=== PATIENT | male | born 1960 | race Hispanic/Latino ===

== ENCOUNTER 2022-09-30 15:09 | Emergency (ER) | payer MEDICARE, OTHER ==
[~2022-09-30] VITALS: Ht 165.1 cm; Wt 90.3 kg
[~2022-09-30 15:09] MED LIST: DULO30CA52 PO; FERR210T PO; FLUO15CR2 TP; GABA300S3 PO; Midodrine Hcl PO; OXYC10TA48 PO
[2022-09-30] MEDS ORDERED: HYDRALAZINE 20MG/ML VIAL IV ONE (15:30)
[2022-09-30 16:07] LABS: BASOPHILS % (AUTO) 1.3 % (0.0-5.0); EOSINOPHILS % (AUTO) 11.1 % (0.0-8.0); HEMATOCRIT 29.9 % (42-54); LYMPHOCYTES % (AUTO) 22.4 % (21.0-51.0); MEAN CORPUSCULAR HEMOGLOBIN 31.3 pg (27.0-33.0); MEAN CORPUSCULAR HGB CONC 32.4 g/dL (32.0-36.0); MEAN CORPUSCULAR VOLUME 96.5 fL (79-99); MONOCYTES % (AUTO) 9.8 % (3.0-13.0); NEUTROPHILS % (AUTO) 55.2 % (40.0-77.0); PLATELET COUNT (AUTO) 221 K/uL (130-400); WHITE BLOOD COUNT (AUTO) 5.4 K/uL (4.8-10.8)
[2022-09-30 16:51] LABS: POTASSIUM 4.2 mmol/L (3.5-5.1)
[2022-09-30 16:56] LABS: ALBUMIN 3.3 g/dL (3.5-5.0); TOTAL PROTEIN, SERUM 7.1 g/dL (6.0-8.3)
[2022-09-30] MEDS ORDERED: LABETALOL 20MG VIAL IV ONE (17:30)
[2022-09-30 17:43] VITALS: BP 172/92
== END 2022-09-30 19:02 | disposition home or self-care (01) ==
LOC: EDH 15:09
DX: I16.0 Hypertensive urgency (principal); E11.22 Type 2 diabetes mellitus with diabetic chronic kidney disease; I12.0 Hypertensive chronic kidney disease with stage 5 chronic kidney disease or end stage renal disease; N18.6 End stage renal disease; E11.40 Type 2 diabetes mellitus with diabetic neuropathy, unspecified; Z79.899 Other long term (current) drug therapy; Z99.2 Dependence on renal dialysis; Z88.1 Allergy status to other antibiotic agents; Z88.8 Allergy status to other drugs, medicaments and biological substances
CPT/HCPCS: 99291; 96374; 84484; 80053; 85025; 82948; 36415; 71045; 93005; J0360

== ENCOUNTER 2022-10-30 15:27 | Emergency (ER) | payer OTHER ==
[~2022-10-30] VITALS: Ht 165.1 cm; Wt 78.9 kg
[2022-10-30] MEDS ORDERED: METOCLOPRAMIDE 10 MG/2 ML VIAL IVP ONE (16:00)
[2022-10-30 17:11] VITALS: BP 165/88
== END 2022-10-30 17:22 | disposition home or self-care (01) ==
LOC: EDH 15:27
DX: G44.209 Tension-type headache, unspecified, not intractable (principal); E11.9 Type 2 diabetes mellitus without complications; E78.00 Pure hypercholesterolemia, unspecified; I10 Essential (primary) hypertension; Z79.899 Other long term (current) drug therapy; Z88.1 Allergy status to other antibiotic agents; Z88.8 Allergy status to other drugs, medicaments and biological substances
CPT/HCPCS: 99284; 70450; 96374; 71045; 72125; J2765

== ENCOUNTER 2023-12-03 18:40 | Emergency (ER) | payer OTHER ==
[~2023-12-03] VITALS: Ht 170.2 cm; Wt 78.5 kg
[2023-12-03 19:22] LABS: BASOPHILS # (AUTO) 0.06 K/uL (0.00-0.20); BASOPHILS % (AUTO) 1.2 % (0.0-5.0); EOSINOPHILS # (AUTO) 0.68 K/uL (0.00-0.70); EOSINOPHILS % (AUTO) 13.5 % (0.0-8.0); HEMATOCRIT 34.2 % (42-54); IMMATURE GRANULOCYTE ABSOLUTE 0.01 K/uL (0-1); LYMPHOCYTES # (AUTO) 1.3 K/uL (1.0-4.8); LYMPHOCYTES % (AUTO) 25.8 % (21.0-51.0); MONOCYTES # (AUTO) 0.5 K/uL (0.1-1.0); MONOCYTES % (AUTO) 9.5 % (3.0-13.0); NEUTROPHILS # (AUTO) 2.5 K/uL (1.8-7.7); NEUTROPHILS % (AUTO) 49.8 % (40.0-77.0); PLATELET COUNT (AUTO) 171 K/uL (130-400); RED BLOOD CELL COUNT(AUTO) 3.42 MIL/uL (4.50-6.20); RED CELL DISTRIBUTION WIDTH 13.6 % (11.0-15.5)
[2023-12-03 19:32] LABS: CREATININE 6.3 mg/dL (0.5-1.3); POTASSIUM 3.8 mmol/L (3.5-5.1)
[2023-12-03 19:37] LABS: ALBUMIN 3.4 g/dL (3.5-5.0); BILIRUBIN,TOTAL 0.3 mg/dL (0.2-1.0); MAGNESIUM 1.9 mg/dL (1.80-2.40); TOTAL PROTEIN, SERUM 7.6 g/dL (6.0-8.3)
[2023-12-03] MEDS: ONDANSETRON 4MG INJ IVP ONE (19:53)
[2023-12-03] MEDS: PANTOPRAZOLE 40 MG TAB DR PO ONE (19:53)
[2023-12-03] MEDS: ACETAMINOPHEN 325 MG TAB PO ONE (19:54)
[2023-12-03] MEDS: MORPHINE 4 MG SYG IVP ONE (19:57)
[2023-12-03] MEDS ORDERED: NITROGLYCERIN 0.4 MG SL TAB SL PRN (20:00)
[2023-12-03] MEDS ORDERED: ALBUHFA IH (21:16)
[2023-12-03] MEDS ORDERED: PRED20TA3 PO (21:16)
[2023-12-03] MEDS ORDERED: AZIT500T4 PO (21:16)
[2023-12-03] MEDS: SOLU-MEDROL 40MG VIAL IVP ONE (21:53)
[2023-12-03] MEDS: PSEUDOEPHEDRINE HCL 30 MG TAB PO SCH (21:53)
[2023-12-03] MEDS: IPRATROPIUM/ALBUTEROL SULFATE 3 ML SOLUTION IH ONE (22:07)
[2023-12-03 22:08] VITALS: PULSE 56; RESP 19
[2023-12-03 22:45] VITALS: BP 132/71; PULSE 61; RESP 16; O2SAT 97
== END 2023-12-03 22:59 | disposition home or self-care (01) ==
LOC: EDH 18:40
DX: R07.89 Other chest pain (principal); J20.9 Acute bronchitis, unspecified; M87.19 Osteonecrosis due to drugs, multiple sites; F12.10 Cannabis abuse, uncomplicated; F17.200 Nicotine dependence, unspecified, uncomplicated; G89.4 Chronic pain syndrome; I12.0 Hypertensive chronic kidney disease with stage 5 chronic kidney disease or end stage renal disease; E11.22 Type 2 diabetes mellitus with diabetic chronic kidney disease; N18.6 End stage renal disease; E11.40 Type 2 diabetes mellitus with diabetic neuropathy, unspecified; E78.00 Pure hypercholesterolemia, unspecified; Z79.899 Other long term (current) drug therapy; Z88.1 Allergy status to other antibiotic agents; Z88.8 Allergy status to other drugs, medicaments and biological substances; Z91.041 Radiographic dye allergy status; Z94.0 Kidney transplant status; Z99.2 Dependence on renal dialysis; Z98.890 Other specified postprocedural states
CPT/HCPCS: 99283; 96374; 96375; 71045; 83735; 84484; 80053; 85025; 36415; 93005; 94640; J2405; J2919; J2270